=== PATIENT | male | born 1950 | race Asian ===

== ENCOUNTER 2022-08-18 09:37 | Emergency (ER) | payer BC ==
[~2022-08-18] VITALS: Ht 165.1 cm; Wt 58.1 kg
[2022-08-18 09:46] VITALS: BP 133/71
--- NOTE | 2022-08-18 09:50 | NUR ---
PT AMB TO BED 6.
--- NOTE | 2022-08-18 10:31 | NUR ---
burton cath inserted, 600 cc of orange urine, pain now 0/10 MD made aware
--- NOTE | 2022-08-18 11:16 | NUR ---
Patient discharged with v/s stable. Written and verbal after care instructions given and explained. Patient verbalized understanding. Ambulatory with steady gait. All questions addressed prior to discharge. Advised to follow up with PMD in 3-4 days butron leg bag in place, no distress noted.
[2022-08-18 11:17] VITALS: BP 120/65
== END 2022-08-18 11:16 | disposition home or self-care (01) ==
LOC: MED 09:37
DX: R33.9 Retention of urine, unspecified (principal); R14.0 Abdominal distension (gaseous); I10 Essential (primary) hypertension; Z98.890 Other specified postprocedural states
CPT/HCPCS: 51702; 81002; 99284